=== PATIENT | male | born 1995 | race Caucasian/White ===

== ENCOUNTER 2019-05-12 02:54 | Emergency (ER) | payer OTHER ==
[2019-05-12] MEDS ORDERED: Sodium Chloride 0.9% 10 ML Syringe FLUSH PRN (03:00)
[2019-05-12] MEDS ORDERED: Sodium Chloride 0.9% 2.5 ML Syringe FLUSH PRN (03:00)
[2019-05-12] MEDS ORDERED: Ketorolac 30 MG/ML SDV IVPUSH ONE (03:00)
--- NOTE | 2019-05-12 03:06 | EDM.PDOC ---
ED HPI GENERAL MEDICAL PROBLEM - General Chief Complaint: Upper Extremity Injury/Pain Stated Complaint: AMB Time Seen by Provider: 05/12/19 02:55 - History of Present Illness INITIAL COMMENTS - FREE TEXT/NARRATIVE: HISTORY AND PHYSICAL: History of present illness: The patient is a 24-year-old male who presents with right shoulder pain via EMS. As that in the past his shoulder has "popped out" and he has been able to maneuver it back in without seeking emergency care or orthopedic consultation. He says he will usually massage the muscles and let the arm hanging and it will relax and go back into place. He says this has happened about 30 times but he has not followed up for professional evaluation. He says that this happened on Friday night and it took a lot of maneuvering but his girlfriend was able to pop it back in and a similar event occurred this evening where he was sleeping and placed his arm over his head and felt a pop but was unable to massage and manipulate the shoulder to "get it back in". He has no distal elbow forearm wrist or hand pain and no neurosensory changes in his hand. He has no other systemic complaints or associated injuries. Patient last ate food at dinner time and last had liquids at 11 PM, approximately 4 hours ago Review of systems: As per history of present illness and below otherwise all systems reviewed and negative. Past medical history: As per history of present illness and as reviewed below otherwise noncontributory. Surgical history: As per history of present illness and as reviewed below otherwise noncontributory. Social history: No reported history of drug or alcohol abuse. Family history: As per history of present illness and as reviewed below otherwise noncontributory. Physical exam: General: Well-developed well-nourished man who is nontoxic and vital signs are noted by me. He is keeping his right forearm and elbow on his right knee to support the arm and shoulder as a position of comfort. HEENT: Atraumatic, normocephalic, negative for conjunctival pallor or scleral icterus, mucous membranes moist, throat clear, neck supple, nontender, trachea midline. Lungs: Clear to auscultation, breath sounds equal bilaterally, chest nontender. Heart: S1S2, regular rate and rhythm no overt murmurs Abdomen: Soft, nondistended, nontender. NABS Pelvis: Deferred Genitourinary: Deferred. Rectal: Deferred. Extremities: Atraumatic full range of motion of all extremities with the exception of the right shoulder where the patient resists any movement due to discomfort. There is no gross step off of the AC joint in this area and there are no palpable bony deformities and the patient does have well-developed muscularity here and there is no soft tissue swelling or fullness appreciated. The distal humerus elbow forearm wrist and hand are intact without tenderness defects or deformities.. Neurovascular unremarkable. Neuro: Awake, alert, oriented. Cranial nerves II through XII unremarkable. Cerebellum unremarkable. Motor and sensory unremarkable throughout. Exam nonfocal. Diagnostics: X-ray right shoulder Therapeutics: IV placement Toradol Zofran Dilaudid shoulder immobilizer Procedure note: After scapula manipulation was explained to the patient and an initial x-ray was performed and reviewed by me the patient was given a dose of Dilaudid with Zofran and IV fluids and scapula manipulation was performed with successful reduction of the shoulder dislocation. The patient was awake throughout all of this and had no complications and tolerated the procedure well. A shoulder mobilizer was placed. A postreduction x-ray will be ordered and followed up and the patient will be discharged home with orthopedic follow- up I did discuss with the patient at length that as this has come out multiple times he likely will need orthopedic follow-up and possible further care of this either surgically or with physical therapy. He States understanding and I will give him ortho referrals Impression: Right anterior shoulder dislocation, recurrent Definitive disposition and diagnosis as appropriate pending reevaluation and review of above. R shoulder Pain Score (Numeric/FACES): 9 - Related Data Allergies Allergy/AdvReac Type Severity Reaction Status Date / Time No Known Allergies Allergy Verified 05/12/19 03:00 Home Meds: Home Meds . [No Known Home Meds] 05/12/19 [History] Review of Systems - Review of Systems Review Of Systems: ROS reveals no pertinent complaints other than HPI. ED EXAM, GENERAL - Physical Exam Exam: See Below (See dictation) Course - Vital Signs Last Recorded V/S: Last Vital Signs Temp 36.5 C 05/12/19 02:56 Pulse 54 L 05/12/19 02:56 Resp 16 05/12/19 02:56 BP 138/86 05/12/19 02:56 Pulse Ox 100 05/12/19 02:56 - Orders/Labs/Meds Orders: Active Orders 24 hr Category Date Time Status Shoulder 1V Rt [CR] Stat Exams 05/12/19 03:38 Taken Sodium Chloride 0.9% [Normal Saline] 1,000 ml Med 05/12/19 03:25 Active IV STAT Sodium Chloride 0.9% [Saline Flush] Med 05/12/19 03:00 Active 10 ml FLUSH ASDIRECTED PRN Sodium Chloride 0.9% [Saline Flush] Med 05/12/19 03:00 Active 2.5 ml FLUSH ASDIRECTED PRN DME for Discharge [COMM] Stat Oth 05/12/19 03:42 Ordered Saline Lock Insert [OM.PC] Stat Oth 05/12/19 03:00 Ordered Medication Orders Sodium Chloride (Normal Saline) 1,000 mls @ 999 mls/hr IV STAT ONE Stop: 05/12/19 04:25 Last Admin: 05/12/19 03:29 Dose: 999 mls/hr Sodium Chloride (Saline Flush) 10 ml FLUSH ASDIRECTED PRN PRN Reason: Keep Vein Open Sodium Chloride (Saline Flush) 2.5 ml FLUSH ASDIRECTED PRN PRN Reason: Keep Vein Open Meds: Medications Generic Name Dose Route Start Last Admin Trade Name Freq PRN Reason Stop Dose Admin Sodium Chloride 1,000 mls @ 999 mls/hr 05/12/19 03:25 05/12/19 03:29 Normal Saline IV 05/12/19 04:25 999 mls/hr STAT ONE Administration Sodium Chloride 10 ml 05/12/19 03:00 Saline Flush FLUSH ASDIRECTED PRN Keep Vein Open Sodium Chloride 2.5 ml 05/12/19 03:00 Saline Flush FLUSH ASDIRECTED PRN Keep Vein Open Discontinued Medications Generic Name Dose Route Start Last Admin Trade Name Freq PRN Reason Stop Dose Admin Hydromorphone HCl 1 mg 05/12/19 03:25 05/12/19 03:29 Dilaudid IVPUSH 05/12/19 03:26 1 mg ONETIME ONE Administration Ketorolac Tromethamine 30 mg 05/12/19 03:00 05/12/19 03:20 Toradol IVPUSH 05/12/19 03:01 30 mg ONETIME ONE Administration Ondansetron HCl 4 mg 05/12/19 03:25 05/12/19 03:29 Zofran IVPUSH 05/12/19 03:26 4 mg ONETIME ONE Administration Departure - Departure Time of Disposition: 03:56 Disposition: Home, Self-Care 01 Condition: Good Clinical Impression: Anterior shoulder dislocation Qualifiers: Encounter type: initial encounter Laterality: right Qualified Code(s): S43.014A - Anterior dislocation of right humerus, initial encounter - Discharge Information Forms: ED Department Discharge Additional Instructions: The following information is given to patients seen in the emergency department who are being discharged to home. This information is to outline your options for follow-up care. We provide all patients seen in our emergency department with a follow-up referral. The need for follow-up, as well as the timing and circumstances, are variable depending upon the specifics of your emergency department visit. If you don't have a primary care physician on staff, we will provide you with a referral. We always advise you to contact your personal physician following an emergency department visit to inform them of the circumstance of the visit and for follow-up with them and/or the need for any referrals to a consulting specialist. The emergency department will also refer you to a specialist when appropriate. This referral assures that you have the opportunity for followup care with a specialist. All of these measure are taken in an effort to provide you with optimal care, which includes your followup. Under all circumstances we always encourage you to contact your private physician who remains a resource for coordinating your care. When calling for followup care, please make the office aware that this follow-up is from your recent emergency room visit. If for any reason you are refused follow-up, please contact the [facility] emergency department at and ask to speak to the emergency department charge nurse. Dr Ni, Orthopedist [facility] [address] [place] [address] Dr Franco - Dr Lyn - Dr Nathan [facility] at [facility] [address] [place] [address] [facility] [address] [place] [address] Ice to area of swelling and inflammation and use [id number] medications for pain as you choose. Please wear the immobilizer until you're followed up in the clinic as this joint has a high probability of easily re-dislocating with movements. Please connect with one of the treasury specialist using resources given to above as we no longer have orthopedics here at our hospital. Return to ER as needed and as discussed. - My Orders Last 24 Hours: My Active Orders 05/12/19 03:00 Sodium Chloride 0.9% [Saline Flush] 10 ml FLUSH ASDIRECTED PRN Sodium Chloride 0.9% [Saline Flush] 2.5 ml FLUSH ASDIRECTED PRN Saline Lock Insert [OM.PC] Stat 05/12/19 03:25 Sodium Chloride 0.9% [Normal Saline] 1,000 ml IV STAT 05/12/19 03:38 Shoulder 1V Rt [CR] Stat 05/12/19 03:42 DME for Discharge [COMM] Stat - Assessment/Plan Last 24 Hours: My Active Orders 05/12/19 03:00 Sodium Chloride 0.9% [Saline Flush] 10 ml FLUSH ASDIRECTED PRN Sodium Chloride 0.9% [Saline Flush] 2.5 ml FLUSH ASDIRECTED PRN Saline Lock Insert [OM.PC] Stat 05/12/19 03:25 Sodium Chloride 0.9% [Normal Saline] 1,000 ml IV STAT 05/12/19 03:38 Shoulder 1V Rt [CR] Stat 05/12/19 03:42 DME for Discharge [COMM] Stat
[2019-05-12] MEDS ORDERED: Ondansetron 4 MG/2 ML SDV IVPUSH ONE (03:25)
[2019-05-12] MEDS ORDERED: Sodium Chloride 0.9% 1,000 ML IV ONE (03:25)
[2019-05-12] MEDS ORDERED: HYDROmorphone 1 MG/ML Syringe IVPUSH ONE (03:25)
--- NOTE | 2019-05-12 03:34 | CR ---
INDICATION: Pain TECHNIQUE: Two views right shoulder COMPARISON: None FINDINGS: Bones: Alignment is normal. No fractures or bone lesions. Joint spaces: Humeral head is dislocated inferior medially consistent with anterior dislocation. Soft tissues: Unremarkable. IMPRESSION: Anterior dislocation right humeral head. Dictated by Norman Verduzco MD @ 05/12/2019 3:32:36 AM Dictated by: Norman Verduzco MD @ 05/12/2019 03:32:42 (Electronically Signed)
--- NOTE | 2019-05-12 04:00 | CR ---
INDICATION: Post reduction TECHNIQUE: Two views right shoulder COMPARISON: 3:04 a.m. FINDINGS: Bones: Alignment is normal. No fractures or bone lesions. Joint spaces: Unremarkable. Soft tissues: Unremarkable. IMPRESSION: Anatomical alignment of the glenohumeral joint. Dictated by Norman Verduzco MD @ 05/12/2019 3:57:46 AM Dictated by: Norman Verduzco MD @ 05/12/2019 03:58:11 (Electronically Signed)
== END 2019-05-12 04:25 | disposition home or self-care (01) ==
LOC: MW.ED 02:54
DX: S43.014A Anterior dislocation of right humerus, initial encounter (principal); X50.9XXA Other and unspecified overexertion or strenuous movements or postures, initial encounter
CPT/HCPCS: 23650; 73020; 73030; 96361; 96374; 96375; 99283; J1170; J1885; J2405; J7040